=== PATIENT | female | born 1960 | race Caucasian/White ===

== ENCOUNTER 2020-06-29 12:10 | Outpatient (REF) | payer BC, SELFPAY ==
--- NOTE | 2020-06-29 12:15 | MM_ITS ---
EXAMINATION: MM SCREENING DIGITAL BREAST TOMOSYNTHESIS, BILATERAL CLINICAL INFORMATION: Screening. Asymptomatic. The lifetime risk of breast cancer based on the Tyrer-Cuzick Model is 9%. COMPARISON: Mammography: 09/25/2018, 09/15/2017, 07/29/2016 TECHNIQUE: Digital breast tomosynthesis is performed in both the craniocaudal and mediolateral oblique views along with computer-aided detection (CAD). Synthesized 2D images are generated from the tomosynthesis. FINDINGS: There are scattered areas of fibroglandular density (ACR BI-RADS breast composition Category b). There are no significant masses, abnormal calcifications, or other abnormalities. Vascular calcifications posterior medial right breast. The axilla and skin contours are unremarkable. MM/MM tomosynthesis screening BI IMPRESSION: No mammographic evidence of malignancy. ASSESSMENT: BI-RADS 1: Negative RECOMMENDATION: Routine annual mammography screening. This patient's information was entered into a reminder system with a target due date for their next mammogram.
== END 2020-06-29 12:11 | disposition home or self-care (01) ==
LOC: HO.MAMMO 12:10
PROVIDERS: PCP Internal Medicine; Visit Provider Internal Medicine
DX: Z12.31 Encounter for screening mammogram for malignant neoplasm of breast (principal)
CPT/HCPCS: 77063; 77067

== ENCOUNTER 2021-07-04 10:30 | Outpatient (REF) | payer BC, SELFPAY ==
--- NOTE | ~2021-07-04 | MM_ITS ---
EXAMINATION: MM SCREENING DIGITAL BREAST TOMOSYNTHESIS, BILATERAL CLINICAL INFORMATION: Screening. Asymptomatic. The lifetime risk of breast cancer based on the Tyrer-Cuzick Model is 6%. COMPARISON: Mammography: 06/29/2020, 09/25/2018, 09/15/2017 TECHNIQUE: Digital breast tomosynthesis is performed in both the craniocaudal and mediolateral oblique views along with computer-aided detection (CAD). Synthesized 2D images are generated from the tomosynthesis. FINDINGS: There are scattered areas of fibroglandular density (ACR BI-RADS breast composition Category b). There are no significant masses, abnormal calcifications, or other abnormalities. Parenchymal pattern is similar to prior studies. There is no developing density or architectural abnormality. The axilla and skin contours are unremarkable. No significant changes. MM/MM tomosynthesis screening BI IMPRESSION: There are no significant changes from prior study. ASSESSMENT: BI-RADS 1: Negative RECOMMENDATION: Routine annual mammography screening. This patient's information was entered into a reminder system with a target due date for their next mammogram.
== END 2021-07-04 10:31 | disposition home or self-care (01) ==
LOC: HO.MAMMO 10:30
PROVIDERS: PCP Internal Medicine; Visit Provider Internal Medicine
DX: Z12.31 Encounter for screening mammogram for malignant neoplasm of breast (principal)
CPT/HCPCS: 77063; 77067

== ENCOUNTER 2022-03-05 08:51 | Day surgery (SDC) | payer BC, SELFPAY ==
[2022-02-27 20:11] VITALS: BMI 32.9
--- NOTE | 2022-03-04 12:15 | P.CONAN_ITS ---
Documented by User: Essence Bullock NP 03/04/22 12:15 HPI - Anesthesia Eval Consult details Narrative: 61yo F for Colonoscopy PMFSH Past Medical History Medical History (Updated 02/27/22 @ 20:03 by Madeleine Roberts RN) Asthma Elevated cholesterol Migraine Overactive bladder Surgical History Surgical History (Updated 02/27/22 @ 20:03 by Madeleine Roberts RN) H/O tubal ligation H/O: hysterectomy History of colonoscopy History of dilatation and curettage History of repair of anterior cruciate ligament of left knee Previous section Social History Social History Patient Tobacco Use Status: Never used Tobacco Use of substances other than those prescribed or required for medical reasons: No Are you DNR?: No Advance Directives: No Advance Directives Information Provided: Yes Advance Directives on File: No Recently lost weight without trying: No Nutrition Risks: No Nutritional Risk Patient : No Meds Allergies Allergy/AdvReac Type Severity Reaction Status Date / Time alcohol Allergy Headache Verified 02/27/22 20:00 Chocolate Allergy Headache Verified 02/27/22 20:00 lactase [From Dairy Aid] Allergy Gastrointestinal Verified 02/27/22 20:00 Upset Penicillins Allergy Hives Verified 02/27/22 20:00 Tetracyclines Allergy Dizziness Verified 02/27/22 20:00 schaffer AdvReac Headache Verified 02/27/22 20:00 Home Medications Medication Instructions Recorded Confirmed Last Taken Type cholecalciferol (vitamin D3) 50 50 mcg PO DAILY 02/27/22 02/27/22 Unknown History mcg (2,000 unit) tablet (Vitamin D3) diphenhydramine 25 1 tab PO BEDTIME PRN Headache 02/27/22 02/27/22 Unknown History mg-acetaminophen 500 mg tablet (Tylenol PM Extra Strength) magnesium 200 mg tablet 400 mg PO DAILY 02/27/22 02/27/22 Unknown History multivitamin 1 tab PO DAILY 02/27/22 02/27/22 Unknown History omega 7-zka-uip-fish oil 1,000 mg 1 cap PO DAILY 02/27/22 02/27/22 Unknown History (120 mg-180 mg) capsule (Fish Oil) oxybutynin chloride 10 mg 10 mg PO DAILY 02/27/22 02/27/22 Unknown History tablet,extended release 24 hr prednisone 20 mg tablet 20 mg PO DAILY PRN Headache 02/27/22 02/27/22 Unknown History topiramate 50 mg tablet (Topamax) 50 mg PO BID 02/27/22 02/27/22 Unknown History Exam Exam Date and Time: March 04, 2022 1215 Height,Weight and Vital Signs: Height 5 ft 3 in Weight 84.368 kg Assessment and Plan Assessment Anesthesia Assessment: Chart Reviewed Documented by User: Constance Darling MD 03/05/22 09:48 [facility] Past Medical History Medical History (Updated 02/27/22 @ 20:03 by Madeleine Roberts RN) Asthma Elevated cholesterol Migraine Overactive bladder Family History Family history of problems with anesthesia: No Surgical History Surgical History (Updated 02/27/22 @ 20:03 by Madeleine Roberts RN) H/O tubal ligation H/O: hysterectomy History of colonoscopy History of dilatation and curettage History of repair of anterior cruciate ligament of left knee Previous section History of Problems with Anesthesia: No Social History Social History Patient Tobacco Use Status: Never used Tobacco Use of substances other than those prescribed or required for medical reasons: No Are you DNR?: No Advance Directives: No Advance Directives Information Provided: Yes Advance Directives on File: No Recently lost weight without trying: No Nutrition Risks: No Nutritional Risk Patient : No Meds Allergies Allergy/AdvReac Type Severity Reaction Status Date / Time alcohol Allergy Headache Verified 02/27/22 20:00 Chocolate Allergy Headache Verified 02/27/22 20:00 lactase [From Dairy Aid] Allergy Gastrointestinal Verified 02/27/22 20:00 Upset Penicillins Allergy Hives Verified 02/27/22 20:00 Tetracyclines Allergy Dizziness Verified 02/27/22 20:00 schaffer AdvReac Headache Verified 02/27/22 20:00 Home Medications Medication Instructions Recorded Confirmed Last Taken Type cholecalciferol (vitamin D3) 50 50 mcg PO DAILY 02/27/22 02/27/22 Unknown History mcg (2,000 unit) tablet (Vitamin D3) diphenhydramine 25 1 tab PO BEDTIME PRN Headache 02/27/22 02/27/22 Unknown History mg-acetaminophen 500 mg tablet (Tylenol PM Extra Strength) magnesium 200 mg tablet 400 mg PO DAILY 02/27/22 02/27/22 Unknown History multivitamin 1 tab PO DAILY 02/27/22 02/27/22 Unknown History omega 2-pqs-koq-fish oil 1,000 mg 1 cap PO DAILY 02/27/22 02/27/22 Unknown History (120 mg-180 mg) capsule (Fish Oil) oxybutynin chloride 10 mg 10 mg PO DAILY 02/27/22 02/27/22 Unknown History tablet,extended release 24 hr prednisone 20 mg tablet 20 mg PO DAILY PRN Headache 02/27/22 02/27/22 Unknown History topiramate 50 mg tablet (Topamax) 50 mg PO BID 02/27/22 02/27/22 Unknown History Exam Height,Weight and Vital Signs: Height 5 ft 3 in Weight 84.368 kg Vital Signs Temp Pulse Resp BP Pulse Ox O2 Del Method 03/05/22 09:12 97.8 F 59 18 168/95 H 98 Room Air Airway Mallampati Class: II TM Dist: >3cm Neck ROM: Full Loose/Missing/Broken Teeth: Yes (2 missing molars bottom left) Heart: RRR Lungs: CTAB Assessment and Plan Assessment Anesthesia Assessment: Anesthesia Plan Discussed Final Anesthetic Review Family History of Problems with Anesthesia: No History of Problems with Anesthesia: No NPO: Yes ASA Class: II Final Preanesthetic Review: No Changes in Pt Med Stat, Meds/Allgs Chart Reviewed, Consent Obtained/Reviewed and Anes Risks/Benef Reviewed Patient Risk: Low Procedure Risk: Low Assessment/Block/Sedation in SS: Assess/Block/Sedation-SS Anesthetic Plan Anesthetic Plan: MAC: Disposition: Standard PACU
[2022-03-05 09:12] VITALS: BP 168/95; PULSE 59; RESP 18; TEMP 36.6; O2SAT 98
[2022-03-05 09:19] VITALS: BMI 31.8
[2022-03-05] MEDS: Lactated Ringers 1,000 ML 100 ML IVCONT (09:47)
--- NOTE | 2022-03-05 10:16 | P.HPSUR_ITS ---
Pre-Procedural Eval Section A Date of Service: 03/05/22 Section B Chief Complaint: screening Details of Present Illness: see H&P no changes Relevant Family History (Specify if Yes): No Relevant Social History: None Present Medications: see Short Stay Collaborative assessment Medical History: No relevant PMH History of Previous Operations: No relevant previous surgery Allergies: Allergies Allergy/AdvReac Type Severity Reaction Status Date / Time alcohol Allergy Headache Verified 02/27/22 20:00 Chocolate Allergy Headache Verified 02/27/22 20:00 lactase [From Dairy Aid] Allergy Gastrointestinal Verified 02/27/22 20:00 Upset Penicillins Allergy Hives Verified 02/27/22 20:00 Tetracyclines Allergy Dizziness Verified 02/27/22 20:00 schaffer AdvReac Headache Verified 02/27/22 20:00 Review of Systems Sugical H&P ROS: Negative: Constitution, Cardiovascular, Respiratory, Neurological, Psychiatric, Hem-Onc, Allergic/Immunologic, Gastrointestinal, Genitourinary, Musculoskeletal, Integumentary, Endocrine and Eyes/E ars/Nose/Throat Exam Surgical H&P Exam: Normal: HEENT, Normal: Heart, Normal: Lungs, Normal: Extremities, Normal: Abdomen, Normal: Skin and Normal: Neurological Plan Diagnosis/Plan: Unchanged I have reviewed the history and physical and performed a pertinent physical examination on my patient. No changes have occurred unless specified.
[2022-03-05 10:47] VITALS: BP 109/54; PULSE 71; RESP 16; TEMP 36.4; O2SAT 94
--- NOTE | 2022-03-05 10:47 | P.BOP_ITS ---
Brief Operative Note Date of Service: 03/05/22 Pre-op diagnosis: screening Post-op diagnosis: same Procedure: colonoscopy Surgeon: Bruno Barnes Anesthesia: MAC Was an Agriculture Science Teacher used for this Procedure?: No Estimated blood loss (mL): 5 Condition: stable Disposition: PACU
[2022-03-05 11:02] VITALS: BP 121/73; PULSE 62; RESP 18; TEMP 36.3; O2SAT 96
--- NOTE | 2022-03-05 13:33 | OP_ITS ---
SURGEON: Bruno Barnes MD INDICATIONS: Colon cancer screening and prior history of adenomatous colon polyps. PREOPERATIVE DIAGNOSIS: POSTOPERATIVE DIAGNOSIS: PROCEDURE PERFORMED: Colonoscopy to the terminal ileum with biopsy on 03/05/22. ESTIMATED BLOOD LOSS: COMPLICATIONS: ANESTHESIA: ASSISTANTS: SPECIMENS: MEDICATIONS: Monitored anesthesia care. DESCRIPTION OF PROCEDURE: History and physical performed. The risks and benefits of the procedure were explained to the patient. Informed consent was obtained. The patient was placed in the left lateral decubitus position. A digital rectal exam was performed and was found to be normal. The Olympus pediatric video colonoscope was introduced into the rectum and advanced to the cecum without difficulty. The cecum was identified by transillumination, palpation, and identification of ileocecal valve. Examination was performed. The scope was removed. She tolerated the procedure well, was returned to recovery area in stable condition. FINDINGS: The terminal ileum was examined and appeared normal. The visualized colonic mucosa was normal. The quality of the prep was good. A single polyp measuring less than 5 mm was identified at 70 cm from the anal verge and removed using a biopsy forceps. No other polyps were identified. Retroflexed examination was normal. IMPRESSION: Colon polyp. RECOMMENDATION: Follow up the biopsy results. MD SHEKHAR Pitts/CORY / [id number] MTDD
== END 2022-03-05 11:21 | disposition home or self-care (01) ==
PROVIDERS: PCP Internal Medicine; Visit Provider Internal Medicine Gastroenterology
PROC: 0DJD8ZZ Inspection of Lower Intestinal Tract, Via Natural or Artificial Opening Endoscopic (ICD-10-PCS; CPT 45378; principal; 2022-03-05 10:10)
DX: Z12.11 Encounter for screening for malignant neoplasm of colon (principal); Z86.010 Personal history of colon polyps; K63.5 Polyp of colon; E78.00 Pure hypercholesterolemia, unspecified; J45.909 Unspecified asthma, uncomplicated; G43.909 Migraine, unspecified, not intractable, without status migrainosus; N32.81 Overactive bladder; Z79.899 Other long term (current) drug therapy; Z88.0 Allergy status to penicillin; Z88.1 Allergy status to other antibiotic agents
CPT/HCPCS: 45380; 88305

== ENCOUNTER 2022-07-10 09:38 | Outpatient (REF) | payer BC, SELFPAY ==
--- NOTE | ~2022-07-10 | MM_ITS ---
EXAMINATION: MM SCREENING DIGITAL BREAST TOMOSYNTHESIS, BILATERAL CLINICAL INFORMATION: Screening. Asymptomatic. The lifetime risk of breast cancer based on the Tyrer-Cuzick Model is 8%. COMPARISON: Mammography: 07/04/2021, 06/29/2020, 09/25/2018 TECHNIQUE: Digital breast tomosynthesis is performed in both the craniocaudal and mediolateral oblique views along with computer-aided detection (CAD). Synthesized 2D images are generated from the tomosynthesis. FINDINGS: There are scattered areas of fibroglandular density (ACR BI-RADS breast composition Category b). There are no significant masses, abnormal calcifications, or other abnormalities. No developing density or architectural abnormality. Parenchymal pattern is similar to prior studies. The axilla and skin contours are unremarkable. MM/MM tomosynthesis screening BI IMPRESSION: No mammographic evidence of malignancy. ASSESSMENT: BI-RADS 1: Negative RECOMMENDATION: Routine annual mammography screening. This patient's information was entered into a reminder system with a target due date for their next mammogram.
== END 2022-07-10 09:39 | disposition home or self-care (01) ==
LOC: HO.MAMMO 09:38
PROVIDERS: Visit Provider Internal Medicine
DX: Z12.31 Encounter for screening mammogram for malignant neoplasm of breast (principal)
CPT/HCPCS: 77063; 77067

== ENCOUNTER 2023-07-16 09:45 | Outpatient (REF) | payer BC, SELFPAY | END 2023-07-16 09:46 | disposition home or self-care (01) | LOC: HO.MAMMO 09:45 | PROVIDERS: PCP Internal Medicine; Visit Provider Internal Medicine | DX: Z12.31 Encounter for screening mammogram for malignant neoplasm of breast (principal) | CPT/HCPCS: 77063; 77067 ==

== ENCOUNTER → 2023-07-16 10:15 | Outpatient (BNV) | payer BC, SELFPAY | PROVIDERS: PCP Internal Medicine; Visit Provider Radiology Diagnostic Radiology | DX: Z12.31 Encounter for screening mammogram for malignant neoplasm of breast (principal) | CPT/HCPCS: 77063; 77067 ==

== ENCOUNTER 2024-01-28 08:33 | Outpatient (REF) | payer BC, SELFPAY ==
[2024-01-28 10:30] LABS: MANUAL DIFF FLAG NO
[2024-01-28 10:37] LABS: Basophils Absolute Auto 0.1 X10*3/uL (0.0-0.2); Basophils Percent Auto 0.8 % (0-2); Eosinophils Absolute Auto 0.2 X10*3/uL (0.0-0.4); Eosinophils Percent Auto 3.3 % (0-4); Hematocrit 43.2 % (37.0-47.0); Hemoglobin 14.2 g/dl (12.0-16.0); Imm Gran Abs Auto 0.01 X10*3/uL (0.00-0.03); Imm Gran Pct Auto 0.2 % (0.0-0.4); Lymphocytes Absolute Auto 2.3 X10*3/uL (1.2-4.9); Lymphocytes Percent Auto 36.1 % (20-40); Mean Corpuscular HGB Conc 32.9 g/dl (31.0-35.0); Mean Corpuscular Hemoglobin 30.3 pg (27.0-33.0); Mean Corpuscular Volume 92.1 fL (80.0-98.0); Mean Platelet Volume 11.7 fL (9.4-12.3); Monocytes Absolute Auto 0.5 X10*3/uL (0.1-1.2); Monocytes Percent Auto 7.5 % (2-11); Neutrophils Absolute Auto 3.3 x10*3/uL (2.0-8.3); Neutrophils Percent Auto 52.1 % (45-73); Platelet Count 259 X10*3/uL (160-400); Red Blood Count 4.69 X10*6/uL (4.20-5.50); Red Cell Distribution Width 12.7 % (11.0-16.0); White Blood Count 6.3 X10*3/uL (4.8-10.8)
[2024-01-28 11:02] LABS: Alanine Aminotransferase 13 U/L (0-31); Albumin Level 3.9 g/dL (3.5-5.0); Alkaline Phosphatase 92 U/L (39-117); Anion Gap 10 (12-20); Aspartate Amino Transferase 14 U/L (5-31); Bilirubin Total 0.5 mg/dL (0.0-1.0); Blood Urea Nitrogen 9 mg/dL (9-16); Carbon Dioxide 25 mmol/L (22-29); Chloride 110 mmol/L (96-108); Cholesterol 213 mg/dL (<200); Estimated Glomerular Filt Rate > 60; Glucose Random 94 mg/dL (60-115); HDL Cholesterol 37 mg/dL (>40); LDL Cholesterol Calculated 146 mg/dL (<100); Potassium 4.1 mmol/L (3.3-5.1); Sodium 141 mmol/L (135-145); Total Protein 6.5 g/dL (6.5-8.0); Triglycerides 152 mg/dL (<150)
[2024-01-28 11:06] LABS: TSH reflex Free T4 1.92 uIU/mL (0.32-4.0); Vitamin D 25-OH Total 71.6 ng/mL (>30)
== END 2024-01-28 08:34 | disposition home or self-care (01) ==
LOC: HO.HMGCLDS 08:33
PROVIDERS: PCP Internal Medicine; Visit Provider Internal Medicine
DX: E55.9 Vitamin D deficiency, unspecified (principal); E78.00 Pure hypercholesterolemia, unspecified; R53.81 Other malaise; R53.83 Other fatigue
CPT/HCPCS: 36415; 80053; 80061; 82306; 84443; 85025

== ENCOUNTER 2024-08-09 13:15 | Outpatient (REF) | payer BC, SELFPAY ==
--- OUTSIDE RECORDS SUMMARY | 2024-08-09 15:10 | XMS_ITS | Patient Health Record ---
Author Organization [facility] Address [address] [place] [id number] Care Team Providers Care Cap Parts Cutter Name Role Phone Sami Blackwell MD Primary Care Provider Bruno Solorio Jr Unavailable ALLERGIES Allergen (clinical drug ingredient) Drug/Non Drug Allergy documented on EMR Reaction Allergy Type Onset Date Status Alcohol Unknown Drug Allergy Active Penicillin Unknown Drug Allergy Active tetracycline Tetracycline HCl Unknown Drug Allergy Active chocolate/dairy (uncoded) Unknown Allergy Active Esqueda esqueda (uncoded) Unknown Allergy Ac tive REASON FOR REFERRAL No Information MEDICATIONS Medication SIG (Take, Route, Frequency, Duration) Notes Start Date End Date Status predniSONE 20 MG as directed/tier Ora lly as needed Active Vitamin D3 50 MCG (1999) 1 tablet Ora lly Once a day Active MiraLax (colon prep) 17 GM/SCOOP mixed with Gatorade or Crystal Light Orally begin at 5:00 p.m. the day before the procedure for 1 day 01/24/2022 Active Topiramate 50 MG 1 tablet Orally Twic e a day Active Multivitamin - 1 tablet Orally Once a day for 30 day(s) Active Magnesium 400 MG as directed Orally Active Fish Oil 1000 MG 1 capsule Orally Onc e a day for 30 day(s) Active Tylenol PM Extra Strength 500-25 MG 1 tablet at bedtime as needed Orally Once a day Active oxyBUTYnin Chloride ER 10 MG 1 tablet Orally Once a day Active IMMUNIZATIONS Vaccine Route Administration Date Status Comme nts Influenza Unknown 03/16/2021 Administered SOCIAL HISTORY Sex Assigned At : Social History Observation Description Sex Assigned At Unknown PROBLEMS Problem Type ICD Code Onset Dates Problem Status W/U Status Risk SNOMED Code Notes Problem Special screening for malignant neoplasms, colon (Z12.11) Active confirmed 683071941 Problem Encounter for other preprocedural examination (Z01.818) Active confirmed 465879478 Problem Long-term current use of high risk medication other than anticoagulant (Z79.899) Active confirmed 979056630 PLAN OF TREATMENT Future Test Test Name Order Date COLONOSCOPY 03/20/2016 COLONOSCOPY 01/24/2022 Insurance Providers Payer Name Payer Address Payer Phone Subscriber Number Group Number Insured Name Patient Relationship to Insured Coverage Start Date Coverage End Date [facility] [employer] [address] [place] [address] [phone] [id number] GALI MARIA Self - patient is the insured MEDICAL (GENERAL) HISTORY Medical History History ICD Code colonoscopy 04-06-2010 colon polyps migraine headaches asthma miscarriage x 2 overactive bladder elevated cholesterol Surgical History Surgery Date(Month/Year) Caesarean sections x 3 tuball ligation and hysterectomy for abn ormal uterine bleeding dilatation and curettage ACL tear
--- OUTSIDE RECORDS SUMMARY | 2024-08-09 15:10 | XMS_ITS | Clinical Summary ---
Author Organization [facility] Address [address] [place] [address] Care Team Providers Care [employer] And Can Supply Supervisor Name Role Phone Unavailable Primary Care Provider Unavailabl e Allergies Active Allergy Reactions Criticality Noted Date Comments Alcohol Other (See Comments) 01/13/2018 Migraine Chocolate Other (See Comments) 01/13/2018 Migraines Dairy Diarrhea 01/13/2018 Dairy Protein Penicillins Anaphylaxis High 01/13/2018 Tetracycline Hives Medium 01/13/2018 Medications Medication Sig Dispensed Refills Start Date End Date Status predniSONE (DELTASONE) tablet 20 mgIndications:Intrac table chronic migraine without aura and without status migrainosus Help to Relieve Migraines taper as directed 3 tabs daily 7 tablet 6 02/12/2018 Active topiramate (TOPAMAX) 50 MG tabletIndications:In tractable chronic migraine without aura and without status migrainosus TAKE ONE TABLET BY MOUTH TWICE A DAY . THIS MEDICATION HELPS WITH THE MIGRAINES. 60 tablet 2 06/12/2018 Active Diphenhydramine-APAP , sleep, (TYLENOL PM EXTRA STRENGTH PO) Take by mouth. 0 Ac tive topiramate (TOPAMAX) 50 MG tabletIndications:In tractable chronic migraine without aura and without status migrainosus TAKE ONE TABLET BY MOUTH TWICE A DAY (HELPS WITH MIGRAINES) 60 tablet 2 03/17/2019 Active oxybutynin (DITROPAN-XL) 10 MG 24 hr tabletIndications:In tractable chronic migraine without aura and without status migrainosus,Overacti ve bladder TAKE ONE TABLET BY MOUTH EVERY DAY 30 tablet 2 03/22/2019 Active Immunizations Name Administration Dates Next Due Boostrix (Tdap) 07/03/2018 Family History Medical History Relation Name Comments Cancer Brother No Sig Med Hx Daughter 1 No Sig Med Hx Daughter 2 Alcohol abuse Father Cancer Father Diabetes Mother Hypertension Mother Arthritis Sister No Sig Med Hx Son Relation Name Status Comments Brother Alive Daughter 1 Alive Daughter 2 Alive Father Mother Alive Sister Alive Son Alive Social History Tobacco Use Types Packs/Day Years Used Date Smoking Tobacco: Never Smokeless Tobacco: Never Alcohol Use Standard Drinks/Week Comments No 0 (1 standard drink = 0.6 oz pur e alcohol) Sex and Gender Information Value Date Recorded Sex Assigned at Female 07/03/2018 10:27 AM EST Gender Identity Female 07/03/2018 10:27 AM EST Sexual Orientation Not on file Last Filed Vital Signs Vital Sign Reading Time Taken Comments Blood Pressure 130/80 07/03/2018 10:20 AM EST Pulse 62 07/03/2018 10:20 AM EST Temperature 36.6 ??C (97.8 ??F) 07/03/2018 10:[address] Respiratory Rate 18 01/13/2018 8:11 AM EDT Oxygen Saturation 98% 07/03/2018 10:20 AM EST Inhaled Oxygen Concentration - - Weight 83 kg (183 lb) 07/03/2018 10:20 AM EST Height 157.5 cm (5' 2 ) 07/03/2018 10:20 AM EST Body Mass Index 33.47 07/03/2018 10:20 AM EST Plan of Treatment Health Maintenance Due Date Last Done Comments Hepatitis C Screening 1960 COVID-19 Vaccine (#1) 06/30/1960 Depression Screening 1971 Preventative Health Evaluation 12/28/1977 Cervical Cancer Screening (P ap Smear) 12/28/1980 Colon Cancer Screening (Colonoscopy) 12/28/2004 Breast Cancer Screening (Mammogram) 12/28/2009 Shingrix-Zoster Vaccine (1 of 2) 12/28/2009 Influenza Vaccine (#1) 2024 Pneumococcal Vaccine (1 of 1 - PCV) 12/28/2024 DTap / Tdap / Td (2 - Td or Tdap) 07/03/2028 019 RSV Adult > 60+ Yrs or Pregn ant (1 - 1-dose 75+ series) 12/28/2034 Hepatitis B Vaccines Aged Out No long er eligible based on patient's age to complete this topic Pneumococcal Vaccine Aged Out No long er eligible based on patient's age to complete this topic RSV Ped < 20 months Aged Out No longe r eligible based on patient's age to complete this topic
== END 2024-08-09 13:16 | disposition home or self-care (01) ==
LOC: HO.MAMMO 13:15
PROVIDERS: PCP Internal Medicine; Visit Provider Internal Medicine
DX: Z12.31 Encounter for screening mammogram for malignant neoplasm of breast (principal)
CPT/HCPCS: 77063; 77067

== ENCOUNTER → 2024-08-09 13:30 | Outpatient (BNV) | payer BC, SELFPAY | PROVIDERS: PCP Internal Medicine; Visit Provider Internal Medicine | DX: Z12.31 Encounter for screening mammogram for malignant neoplasm of breast (principal) | CPT/HCPCS: 77063; 77067 ==

== ENCOUNTER → 2025-04-14 13:53 | Outpatient (BNVA) | payer MEDICARE, SELFPAY | PROVIDERS: PCP Physician Assistant Medical | DX: Z01.30 Encounter for examination of blood pressure without abnormal findings (principal) | CPT/HCPCS: 99211 ==

== ENCOUNTER 2025-04-21 10:25 | Outpatient (AMB) | payer MEDICARE, SELFPAY ==
[2025-04-21 10:30] VITALS: BP 141/58; PULSE 72; RESP 14; TEMP 36.5; O2SAT 98; BMI 33.8
--- NOTE | 2025-04-21 10:30 | MHC.PC.OV ---
Vital Signs 04/21/25 10:30 04/21/25 11:05 Height 5 ft 3.98 in Weight 197 lb BMI 33.8 BP 141/58 H 128/67 Blood Pressure Location Rt brachial Rt brachial Position Sitting Sitting Respiration 14 Pulse 72 67 Pulse Source Pulse Oximeter Temp 97.7 F Temp Source Temporal Artery Scan Pulse Oximetry (%) 98 Oxygen Delivery Method Room Air Intake Visit Reasons: 2 week follow up Livestock Nutritionist Required: No Accompanied by: Self / Same As Patient Allergies alcohol Allergy (Verified 04/21/25 11:06) Headache Chocolate Allergy (Verified 04/21/25 11:06) Headache lactase (From Dairy Aid) Allergy (Verified 04/21/25 11:06) Gastrointestinal Upset Penicillins Allergy (Verified 04/21/25 11:06) Hives Tetracyclines Allergy (Verified 04/21/25 11:06) Dizziness schaffer Adverse Reaction (Verified 04/21/25 11:06) Headache Medication List - Last Reconciled 04/21/25 by Magnolia Weaver PA-C cholecalciferol (vitamin D3) (Vitamin D3) 50 mcg PO DAILY diphenhydramine-acetaminophen 25-500 mg (Tylenol PM Extra Strength) 1 tab PO BEDTIME PRN glucosamine HCl 500 mg PO BID mirabegron ER 50 mg PO DAILY multivitamin 1 tab PO DAILY omega 9-khl-uyl-fish oil 1,000 (120-180) mg (Fish Oil) 1 cap PO DAILY prednisone 20 mg PO DAILY PRN topiramate (Topamax) 25 mg PO BID Tobacco use date assessed: 04/06/25 Dental Screening Dental Screen Date: 04/06/25 HPI 2 week follow up HPI Details The patient is a 64-year-old female presenting for a follow-up of her blood pressure. She reports her home blood pressure readings are typically 127-130 mmHg systolic and 77-80 mmHg diastolic, and she denies ever having a systolic reading of 140 mmHg at home. An initial blood pressure reading in the office had a diastolic of 58 mmHg, but the patient denied any associated dizziness. Social History - The patient is very active, reporting that she is redoing her bathroom by herself, which involves tasks such as working on a ladder and replacing floors, hickman, and fixtures. - She lives in an older house and recently repaired a wall herself after it sustained water damage and mold growth from a leaking gutter. 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 Father No problems noted. Maternal Grandfather Parkinson disease Maternal Aunt Parkinson disease Lewy body dementia Social History Housing: House Patient Tobacco Use Status: Never used Tobacco service: No Current occupational status: retired Cognitive needs: No Hearing needs: Yes (hearing aid) Vision needs: Yes (rx glasses) Questionnaire PHQ-9 Over the last 2 weeks, how often have you been bothered by any of the following problems? 1. Little interest or pleasure in doing things: not at all 2. Feeling down, depressed, or hopeless: not at all 3. Trouble falling or staying asleep, or sleeping too much: not at all 4. Feeling tired or having little energy: not at all 5. Poor appetite or overeating: not at all 6. Feeling bad about yourself - or that you are a failure or have let yourself or your family down: not at all 7. Trouble concentrating on things, such as reading the newspaper or watching television: not at all 8. Moving or speaking so slowly that other people could have noticed. Or the opposite - being so fidgety or restless that you have been moving around a lot more than usual: not at all 9. Thoughts that you would be better off or of hurting yourself in some way: not at all Total score: 0 Depression Screening Interpretation: Negative Depression Screening Done: Yes 57338 - PHQ-9 Billing: Yes Source: Developed by Drs. Wilmer Jackman, Nany Rousseau, Flavio Zhang and colleagues, with an educational trevor from [employer] Thrive Questionnaire Date Thrive assessed: 04/06/25 I am a: Patient What is your living situation today?: I have a steady place to live Within the past 12 months, did the food you bought not last and you didn't have the money to get more?: Never true Within the past 12 months, did you worry whether your food would run out before you got money to buy more?: Never true Do you have trouble paying for medicines?: No Do you have trouble getting transportation to medical appointments?: No Do you have trouble paying your heating and electricity bill?: No Do you have trouble taking care of your child, family member or friend?: No Do you have trouble with day-to-day activities such as bathing, preparing meals, shopping, managing finances, etc.?: No Are you currently unemployed and looking for a job?: No Are you interested in more education?: No THRIVE Score: 0 AUDIT C Alcohol Use Questionnaire (AUDIT-C) 1. How often do you have a drink containing alcohol?: Never 3. How often do you have six or more drinks on one occasion?: Never Total Score: 0 Score Reviewed/Action Taken: No BRISSA-7 AMB Questionnaire BRISSA-7 Date BRISSA - 7 assessed: 04/06/25 Feeling nervous, anxious, or on edge: 0 = Not at all Not being able to stop or control worryin = Several days Worrying too much about different things: 2 = More than half the days Trouble relaxin = Not at all Being so restless that it is hard to sit still: 0 = Not at all Becoming easily annoyed or irritable: 1 = Several days Feeling afraid as if something awful might happen: 1 = Several days Total BRISSA-7 score (0-4 normal; 5-9 mild; 10-14 moderate; 15-21 severe): 5 Source: Developed by Drs. Wilmer Jackman, Flavio Antony and colleagues, with an educational trevor from [employer]. BRISSA-7 Assessment Billing BRISSA-7 Assessment Tool: BRISSA-7 Assessment 99721 Review of Systems Const Details: - Neurological: Denies dizziness. All systems reviewed & are unremarkable except as noted in HPI and below Physical exam (Primary Care) Vital Signs: Last Vital Signs Temp 97.7 F 04/21/25 10:30 Pulse 72 04/21/25 10:30 Resp 14 04/21/25 10:30 BP 141/58 H 04/21/25 10:30 Pulse Ox 98 04/21/25 10:30 Oxygen Delivery Method Room Air 04/21/25 10:30 Care Plan Goal for BP management: <140/90 at Goal BMI result Body Mass Index 33.8 BMI Assessment/Plan discussion: High BMI High, discussed plan: lifestyle, weight reduction, dietary, physical activity, alcohol moderation and other Tobacco/Smoking Status: Tobacco use Status Tobacco use date assessed 04/06/25 04/21/25 10:48 Patient Tobacco Use Status Never used Tobacco 04/21/25 10:48 PHQ-9: PHQ-9 Score PHQ-9: Total score 0 04/21/25 10:48 Depression Screening Interpretation: Negative Thrive Assessment: Date of Thrive Assessment Date Thrive assessed 04/06/25 04/21/25 10:48 Const Other: Appearance: Alert. Oriented X3. No acute distress. Head: Normal external exam. Normocephalic. Atraumatic. Eyes: Pupils are equal, round, and reactive to light. Extraocular movements intact. Conjunctiva and sclera normal. Eyelids normal. Throat: Pharynx normal. Uvula midline. Moist mucous membranes. Neck: Normal inspection. Neck supple. Full range of motion. Cardiovascular: Normal heart rate and rhythm. Heart sound normal. No murmurs noted. Pulses normal throughout. Respiratory: No respiratory distress. Painless inspiration. Breath sounds normal. No wheezes/rales/rhonchi noted. Back: Full range of motion noted. Skin: Skin warm and dry. Normal skin color. Extremities: Extremities exhibit normal range of motion. Coding Level of Care Code Est Pt Level 4 (90663) Complex EM visit Add On G2211 Diagnoses Hypertension I10 Additional Codes BRISSA-7 Assessment Billing - BRISSA-7 Assessment Tool: BRISSA-7 Assessment 07472 ([id number]) PHQ-9 - 00617 - PHQ-9 Billing: Yes ([id number]) Assessment & Plan Assessment & Plan (1) Hypertension: Code(s): I10 - Essential (primary) hypertension Category: Medical Plan: The patient's hypertension is well-controlled, with home blood pressure readings consistently below 140 mmHg systolic. An in-office blood pressure reading of 120/67 mmHg confirms stability. A follow-up is scheduled for 6 months. The patient was advised to call if any abnormal readings occur. Plan Plan Patient was informed and verbally consented to the use of an ambient scribe for clinic note documentation during this visit. 1. Essential Hypertension The patient's hypertension is well-controlled, with home blood pressure readings consistently below 140 mmHg systolic. An in-office blood pressure reading of 120/67 mmHg confirms stability. A follow-up is scheduled for 6 months. The patient was advised to call if any abnormal readings occur. I reviewed the patient's blood pressure readings, noting that her home measurements are stable and her in-office repeat reading of 120/67 mmHg is good. Although an initial diastolic reading was low at 58 mmHg, she denied any associated dizziness. We agreed that her condition is well-managed, and a 6-month follow-up interval is appropriate. I advised her to contact me if her condition changes or if she has any concerns. Patient Instructions: - Return for a follow-up appointment in 6 months to check your blood pressure. - Call the office if you notice any abnormal blood pressure readings or if you have any other concerns.
[2025-04-21 11:05] VITALS: BP 128/67; PULSE 67
== END 2025-04-21 11:03 | disposition home or self-care (01) ==
LOC: HO.HMCSH 10:25
PROVIDERS: PCP Physician Assistant Medical; Visit Provider Physician Assistant Medical
DX: I10 Essential (primary) hypertension (principal)

== ENCOUNTER → 2025-04-21 10:25 | Outpatient (BNVA) | payer MEDICARE, SELFPAY | PROVIDERS: PCP Physician Assistant Medical; Visit Provider Physician Assistant Medical | DX: I10 Essential (primary) hypertension (principal); Z13.31 Encounter for screening for depression | CPT/HCPCS: 96127; 99212 ==